=== PATIENT | female | born 1990 | race Caucasian/White ===

== ENCOUNTER 2017-02-25 17:10 | Outpatient (CLI) | payer OTHER ==
[~2017-02-25] VITALS: Ht 162.6 cm; Wt 87.1 kg
[2017-02-25 17:26] VITALS: BP 108/64; PULSE 65; RESP 18; Ht 162.6 cm; Wt 87.1 kg
[2017-02-25] MEDS ORDERED: PRENAT PO (17:26)
[2017-02-25] MEDS ORDERED: ALBU90AE INHALATION (17:26)
[2017-02-25] MEDS ORDERED: FLUN8.9H INH (17:26)
[2017-02-25] MEDS ORDERED: FER325 PO (17:26)
[2017-02-25] MEDS ORDERED: FOLI-49 PO (17:26)
--- NOTE | 2017-02-25 18:08 | RADRPT ---
PROCEDURE: US biophysical profile. CLINICAL INDICATION: Decreased motion. Asthma. TECHNIQUE: Multiple sonographic images of the uterus were obtained. The images were revi ewed on a PACS workstation. COMPARISON: No prior studies are available for comparison. FINDINGS: There is a single live intrauterine gestation. heart rate is 144 beats per minute. The position is cephalic. The placenta is fundal anterior grade 1 with no abruption or previa. The JOSE G is 10.8 cm. (Normal = 5-20 cm.) Breathing Movement: 2 Gross Body Movement: 2 Tone: 2 Qualitative Amniotic Fluid Volume: 2 TOTAL: 8 IMPRESSION: 1. The biophysical score is 8/8. RPTAT: QQ .Eb Ramirez MD, MD Date Time Electronically viewed and signed by .Eb Ramirez MD, on 02/25/2017 18:08 .R/
--- NOTE | 2017-02-25 18:27 | QN ---
Documentation Comment Antepartum Testing for asthma NST Category I Bpp 07/01 BARBARA TSE MD Feb 25, 2017 18:27
--- NOTE | 2017-02-25 18:29 | TRIAGE ---
OB Triage Datetime Report Generated by CPN: 02/25/2017 18:28 Datetime: 02/25/2017 18:23 Labor Evaluation Frequency: 0 Monitor Mode: External Pattern: Normal: <= 5 Contractions in 10 Minutes Resting Tone [place]: Relaxed Heart Rate FHR Baseline Rate: 130 Monitor Mode: External US Variability: Moderate 6-25 bpm Accelerations: 15X15 Decelerations: None Category: Category I Pain Assessment Pain Presence: None/Denies Datetime: 02/25/2017 17:22 Assessment Type: Triage Maternal Assessment Level of Consciousness: Fully Conscious DTR's/Clonus: DTRs 2+; No Clonus Headache: Denies Blurred Vision: No Respiratory Effort: Unlabored; Regular Rhythm; Equal Expansion Breath Sounds, Left: Clear and Equal Breath Sounds, Right: Clear and Equal Nausea/Vomiting: Denies RUQ Epigastric Pain: Denies Lower Extremities Edema: None Degree: None Upper Extremities Edema: None Degree: None Facial Edema: None Fall Risk Assessment History of Falling: (0) No Secondary Diagnosis: (0) No Ambulatory Aid: (0) Bedrest/Nurse Assist IV Therapy: (0) No Gait: (0) Normal/Bedrest/Immobile Mental Status: (0) Oriented to Own Ability Fall Score: 0 Fall Risk Score Definition: No Risk: No action required Datetime: 02/25/2017 17:17 EGA: 34.5 Datetime: 02/25/2017 17:16 Time of Arrival: 02/25/2017 17:10 Arrived By: Ambulatory Arrived From: Dr. Loo Chief Complaint: PT SENT FROM CLINIC FOR NST/JOSE G FOR ASTHMA Movement: Present Contractions: Denies/Absent Rupture of Membranes: Denies Vaginal Bleeding: None Vaginal Discharge: Denies Recent Sexual Intercouse: Denies Abdominal Trauma: Not Applicable Patient Complaints: None Provider Notified: CARMENCITA Initial Plan: NST/BPP Monitor Mode: External Monitor Mode: External US
== END 2017-02-25 18:35 | disposition home or self-care (01) ==
LOC: OBT 17:10 → L-D 17:15 → OBT 18:35
PROVIDERS: ATTEND Obstetrics & Gynecology
DX: O26.893 Other specified pregnancy related conditions, third trimester (principal); J45.909 Unspecified asthma, uncomplicated; Z3A.34 34 weeks gestation of pregnancy
CPT/HCPCS: 76818; Z7500; G0463

== ENCOUNTER 2017-02-28 17:29 | Outpatient (CLI) | payer OTHER ==
[~2017-02-28 17:29] MED LIST: ALBU90AE INHALATION; FER325 PO; FLUN8.9H INH; FOLI-49 PO; PRENAT PO
--- NOTE | 2017-02-28 18:22 | RADRPT ---
PROCEDURE: US biophysical profile. CLINICAL INDICATION: Decreased motion. Asthma. TECHNIQUE: Multiple sonographic images of the uterus were obtained. The images were revi ewed on a PACS workstation. COMPARISON: 02/25/2017. FINDINGS: There is a single live intrauterine gestation. heart rate is 129 beats per minute. The position is cephalic. The placenta is fundal anterior grade II with no abruption or previa. The JOSE G is 11.5 cm. (Normal = 5-20 cm.) Breathing Movement: 2 Gross Body Movement: 2 Tone: 2 Qualitative Amniotic Fluid Volume: 2 TOTAL: 8 IMPRESSION: 1. The biophysical score is 8/8. RPTAT: QQ .Eb Ramirez MD, MD Date Time Electronically viewed and signed by .Eb Ramirez MD, on 02/28/2017 18:22 .R/
--- NOTE | 2017-02-28 19:14 | TRIAGE ---
OB Triage Datetime Report Generated by CPN: 02/28/2017 19:14 Datetime: 02/28/2017 17:30 Assessment Type: Triage Maternal Assessment Level of Consciousness: Fully Conscious DTR's/Clonus: DTRs Absent Headache: Denies Blurred Vision: No Respiratory Effort: Unlabored; Regular Rhythm Breath Sounds, Left: Clear and Equal Breath Sounds, Right: Clear and Equal Nausea/Vomiting: Denies RUQ Epigastric Pain: Denies Lower Extremities Edema: None Degree: None Upper Extremities Edema: None Degree: None Facial Edema: None Fall Risk Assessment History of Falling: (0) No Secondary Diagnosis: (0) No Ambulatory Aid: (0) Bedrest/Nurse Assist IV Therapy: (0) No Gait: (0) Normal/Bedrest/Immobile Mental Status: (0) Oriented to Own Ability Fall Score: 0 Fall Risk Score Definition: No Risk: No action required Datetime: 02/28/2017 17:27 Time of Arrival: 02/28/2017 17:27 EGA: 35.1 Arrived By: Ambulatory Arrived From: Home Chief Complaint: PT PRESENTS TO TRIAGE FOR FOLLOW UP NST/BPP DUE TO ASHTHMA Movement: Present Contractions: Denies/Absent Rupture of Membranes: Denies Vaginal Bleeding: None Vaginal Discharge: Denies Recent Sexual Intercouse: Denies Abdominal Trauma: Not Applicable Patient Complaints: None Initial Plan: NST/BPP Datetime: 02/25/2017 17:22 Fall Score: 0 Fall Risk Score Definition: No Risk: No action required Datetime: 02/25/2017 17:18 Temperature Route: Oral Datetime: 02/25/2017 17:17 EGA: 34.5 Datetime: 02/25/2017 17:16 Time Provider Notified: 02/25/2017 18:23 Initial Plan: NST- REACTIVE /BPP-8, JOSE G-10.8
--- NOTE | 2017-04-03 19:00 | QN ---
Documentation Comment Diagnoses: 1. at 35 weeks 2. Asthma BRABARA TSE MD April 03, 2017 19:00
== END 2017-02-28 18:50 | disposition home or self-care (01) ==
LOC: L-D 17:29 → OBT 17:29
PROVIDERS: ATTEND Obstetrics & Gynecology
DX: O26.893 Other specified pregnancy related conditions, third trimester (principal); J45.909 Unspecified asthma, uncomplicated; Z3A.35 35 weeks gestation of pregnancy
CPT/HCPCS: 76818; Z7500; G0463

== ENCOUNTER 2017-03-04 17:31 | Outpatient (CLI) | payer OTHER ==
[~2017-03-04] VITALS: Ht 162.6 cm; Wt 86.5 kg
[2017-03-04 17:41] VITALS: Ht 162.6 cm; Wt 86.5 kg
[2017-03-04 17:42] VITALS: BP 118/67; PULSE 63
--- NOTE | 2017-03-04 18:15 | RADRPT ---
PROCEDURE: US OB biophysical profile. CLINICAL INDICATION: decreased movements, asthma TECHNIQUE: Multiple sonographic images of the pelvis were obtained. The images were reviewed on a PACS workstation. COMPARISON: 02/28/17 FINDINGS: There is a single viable intrauterine gestation. Cardiac activity is present with 146 beats per min [place]. There is a vertex presentation. The placenta is anterior fundal. There is no evidence of placental abruption. There is a normal amount of amniotic fluid with an JOSE G = 13.1 cm. Biophysical profile: movement 2/2 tone 2/2. breathing 2/2 JOSE G 2/2 Total 07/01 RPTAT: AA . IMPRESSION: Normal biophysical profile. . .Raymond Jeff MD, MD Date Time Electronically viewed and signed by .Raymond Jeff MD, MD on 03/04/2017 18:15 .S/
--- NOTE | 2017-03-04 19:52 | PN ---
Date/Time of Note Date/Time of Note DATE: 03/04/17 TIME: 19:48 OB Subjective Subjective Subjective 26y.o primigravida at 35w5d for biweekly APT for asthma no difficulty breathing OB Objective Objective Objective EFM REACTIVE BPP 8/ with JOSE G 13.1 VSS AFEBRILE OB Assessment/Plan Other Assessment: IUP 35w5d ASTHMA asymptomatic Other plan: discharge home and RTH in 3days for f/u APT ANDREW SANTIAGO MD Mar 04, 2017 19:52
== END 2017-03-04 19:20 | disposition home or self-care (01) ==
LOC: OBT 17:31 → L-D 17:32 → OBT 19:20
PROVIDERS: ATTEND Obstetrics & Gynecology
DX: O26.893 Other specified pregnancy related conditions, third trimester (principal); J45.909 Unspecified asthma, uncomplicated; Z3A.35 35 weeks gestation of pregnancy
CPT/HCPCS: 76818; Z7500; G0463

== ENCOUNTER 2017-03-07 18:32 | Outpatient (CLI) | payer OTHER ==
[~2017-03-07] VITALS: Ht 162.6 cm; Wt 87.1 kg
[2017-03-07 18:38] VITALS: Ht 162.6 cm; Wt 87.1 kg
[2017-03-07 18:45] VITALS: BP 115/54
--- NOTE | 2017-03-07 19:12 | RADRPT ---
PROCEDURE: US OB biophysical profile. CLINICAL INDICATION: decreased movements, asthma TECHNIQUE: Multiple sonographic images of the pelvis were obtained. The images were reviewed on a PACS workstation. COMPARISON: 03/04/17 FINDINGS: There is a single viable intrauterine gestation. Cardiac activity is present with 140 beats per min [place]. There is a vertex presentation. The placenta is anterior fundal. There is no evidence of placental abruption. There is a normal amount of amniotic fluid with an JOSE G = 12 cm. Biophysical profile: movement 2/2 tone 2/2. breathing 2/2 JOSE G 2/2 Total 07/01 RPTAT: AA . IMPRESSION: Normal biophysical profile. . .Raymond Jeff MD, MD Date Time Electronically viewed and signed by .Raymond Jeff MD, on 03/07/2017 19:12 .S/
--- NOTE | 2017-03-07 20:21 | PN ---
Date/Time of Note Date/Time of Note DATE: 03/07/17 TIME: 20:07 OB Subjective Subjective Subjective 26 yo P0 @ 36.1 wks, sent by her doctor for NST/BPP for asthma and decreased movement. feels baby moving now, no VB, no LOF, does not feel ctx OB Objective Objective Objective VS: 115/54, 73, 16, 98.0 Abdomen- gravid, n/t SVE- l/c/p FHT- Cat I [place]ail- irreg ctx Abdomen: WNL Cervical Dilatation: None Effacement: 0% Station: -3 Membranes: Intact Heart Rate: 130's Accelerations: Accelerations Present Decelerations: No Decelerations Varibility: Moderate Contractions on Admission: >10 Minutes Apart Intensity: Mild OB Assessment/Plan Other Assessment: 26 yo P0 @ 36.1 wks, sent for NST/BPP for decreased FM and asthma - BPP 8/8, JOSE G 12 -reassuring status Other plan: d/c home f/u for next scheduled NST/BPP FKK precautions; labor precautions STACIE RUBI MD Mar 07, 2017 20:20
--- NOTE | 2017-03-07 23:29 | TRIAGE ---
OB Triage Datetime Report Generated by CPN: 03/07/2017 23:28 Datetime: 03/07/2017 20:39 Stage of : OB Triage Labor Evaluation Frequency: 1.5-6 Monitor Mode: External Duration (sec)2399: 40-60 Quality: Mild Pattern: Normal: <= 5 Contractions in 10 Minutes Resting Tone [place]: Relaxed Heart Rate FHR Baseline Rate: 135 Monitor Mode: External US FHR Baseline Changes: No Baseline Change Variability: Moderate 6-25 bpm Accelerations: 15X15 Decelerations: None Category: Category I Datetime: 03/07/2017 20:31 Stage of : OB Triage Datetime: 03/07/2017 20:07 Stage of : OB Triage Datetime: 03/07/2017 20:02 Stage of : OB Triage Datetime: 03/07/2017 20:00 Stage of : OB Triage Labor Evaluation Frequency: 1.5-5 Monitor Mode: External Duration (sec)2399: 40-100 Quality: Mild Pattern: Normal: <= 5 Contractions in 10 Minutes Resting Tone [place]: Relaxed Heart Rate FHR Baseline Rate: 135 Monitor Mode: External US Variability: Moderate 6-25 bpm Accelerations: 15X15 Decelerations: None Category: Category I Vaginal Exam Dilatation (cms): 0.0 Effacement (%): 0 Station: -4 Exam By: GIANLUCA Bundy Membrane Status: Intact Vaginal Bleeding: None Cervix, Consistency: Firm Cervix, Position: Posterior Datetime: 03/07/2017 19:48 Stage of : OB Triage Datetime: 03/07/2017 18:47 Stage of : OB Triage Assessment Type: Triage Maternal Assessment Level of Consciousness: Fully Conscious DTR's/Clonus: DTRs 2+; No Clonus Headache: Denies Blurred Vision: No Respiratory Effort: Unlabored; Regular Rhythm; Equal Expansion Breath Sounds, Left: Clear and Equal Breath Sounds, Right: Clear and Equal Nausea/Vomiting: Denies RUQ Epigastric Pain: Denies Lower Extremities Edema: None Degree: None Upper Extremities Edema: None Degree: None Facial Edema: None Temperature Route: Oral Fall Risk Assessment History of Falling: (0) No Secondary Diagnosis: (0) No Ambulatory Aid: (0) Bedrest/Nurse Assist IV Therapy: (0) No Gait: (0) Normal/Bedrest/Immobile Mental Status: (0) Oriented to Own Ability Fall Score: 0 Fall Risk Score Definition: No Risk: No action required Monitor Mode: External Heart Rate FHR Baseline Rate: 135 Monitor Mode: External US Pain Assessment Pain Scale: 0 Pain Presence: None/Denies Pain Type: N/A Datetime: 03/07/2017 18:46 Time of Arrival: 03/07/2017 18:31 EGA: 36.1 Arrived By: Ambulatory Arrived From: Home Chief Complaint: F/UP NST BPP FOR ASTHMA Movement: Present Contractions: Denies/Absent Rupture of Membranes: Denies Vaginal Bleeding: None Vaginal Discharge: Denies Recent Sexual Intercouse: Denies Abdominal Trauma: Not Applicable Patient Complaints: None Time Provider Notified: 03/07/2017 20:02 Provider Notified: Initial Plan: NST BPP/JOSE G Datetime: 03/04/2017 19:06 Stage of : OB Triage Datetime: 03/04/2017 18:39 Labor Evaluation Frequency: 0 Monitor Mode: External Pattern: Normal: <= 5 Contractions in 10 Minutes Resting Tone [place]: Relaxed Heart Rate FHR Baseline Rate: 125 Monitor Mode: External US Variability: Moderate 6-25 bpm Accelerations: 10X10 Decelerations: None Category: Category I Pain Assessment Pain Scale: 0 Pain Presence: None/Denies Pain Type: N/A Pain Goal: 3 Pain Relief Measures: Comfort Measures Datetime: 03/04/2017 18:32 Stage of : Antepartum Datetime: 03/04/2017 18:16 Stage of : OB Triage Datetime: 03/04/2017 18:05 Time of Arrival: 03/04/2017 17:31 EGA: 35.5 Arrived By: Ambulatory Arrived From: Home Chief Complaint: BIWEEKLY NST_BPP FOR ASTMA Movement: Present Contractions: Denies/Absent Rupture of Membranes: Denies Vaginal Bleeding: None Vaginal Discharge: Denies Recent Sexual Intercouse: Denies Abdominal Trauma: Not Applicable Patient Complaints: None Time Provider Notified: 03/04/2017 18:32 Provider Notified: CARMENCITA Initial Plan: MONITOR, BPP Datetime: 03/04/2017 17:45 Stage of : OB Triage Assessment Type: Triage Maternal Assessment Level of Consciousness: Fully Conscious DTR's/Clonus: DTRs 2+; No Clonus Headache: Denies Blurred Vision: No Respiratory Effort: Unlabored; Regular Rhythm; Equal Expansion Breath Sounds, Left: Clear and Equal Breath Sounds, Right: Clear and Equal Nausea/Vomiting: Denies RUQ Epigastric Pain: Denies Lower Extremities Edema: None Degree: None Upper Extremities Edema: None Degree: None Facial Edema: None Temperature Route: Axillary Fall Risk Assessment History of Falling: (0) No Secondary Diagnosis: (0) No Ambulatory Aid: (0) Bedrest/Nurse Assist IV Therapy: (0) No Gait: (0) Normal/Bedrest/Immobile Mental Status: (0) Oriented to Own Ability Fall Score: 0 Fall Risk Score Definition: No Risk: No action required Labor Evaluation Frequency: 0 Monitor Mode: External Pattern: Normal: <= 5 Contractions in 10 Minutes Resting Tone [place]: Relaxed Heart Rate FHR Baseline Rate: 125 Monitor Mode: External US Variability: Moderate 6-25 bpm Accelerations: 15X15 Decelerations: None Category: Category I Pain Assessment Pain Scale: 0 Pain Presence: None/Denies Pain Type: N/A Pain Goal: 3 Pain Relief Measures: Comfort Measures Datetime: 02/28/2017 18:44 Labor Evaluation Frequency: 0 Pattern: Normal: <= 5 Contractions in 10 Minutes Resting Tone [place]: Relaxed Heart Rate FHR Baseline Rate: 130 Monitor Mode: External US FHR Baseline Changes: No Baseline Change Variability: Moderate 6-25 bpm Accelerations: 15X15 Decelerations: None Category: Category I Pain Assessment Pain Scale: 0 Pain Presence: None/Denies Pain Type: N/A Datetime: 02/28/2017 17:57 Labor Evaluation Frequency: 0 Pattern: Normal: <= 5 Contractions in 10 Minutes Resting Tone [place]: Relaxed Heart Rate FHR Baseline Rate: 130 Monitor Mode: External US FHR Baseline Changes: No Baseline Change Variability: Moderate 6-25 bpm Accelerations: 15X15 Decelerations: None Category: Category I Pain Assessment Pain Scale: 0 Pain Presence: None/Denies Pain Type: N/A Datetime: 02/28/2017 17:30 Fall Score: 0 Fall Risk Score Definition: No Risk: No action required Datetime: 02/28/2017 17:27 EGA: 35.1 Time Provider Notified: 02/28/2017 18:42 Provider Notified: DELSHAD Datetime: 02/25/2017 17:22 Fall Score: 0 Fall Risk Score Definition: No Risk: No action required Datetime: 02/25/2017 17:17 EGA: 34.5
== END 2017-03-07 20:55 | disposition home or self-care (01) ==
LOC: OBT 18:32 → L-D 18:36 → OBT 20:55
PROVIDERS: ATTEND Obstetrics & Gynecology
DX: O36.8130 Decreased fetal movements, third trimester, not applicable or unspecified (principal); Z3A.36 36 weeks gestation of pregnancy
CPT/HCPCS: 76818; Z7500; G0463

== ENCOUNTER 2017-03-11 10:34 | Outpatient (CLI) | payer OTHER ==
[~2017-03-11] VITALS: Ht 162.6 cm; Wt 86.0 kg
[2017-03-11 10:39] VITALS: BP 123/71; PULSE 93; RESP 18; Ht 162.6 cm; Wt 86.0 kg
--- NOTE | 2017-03-11 11:58 | RADRPT ---
PROCEDURE: US OB biophysical profile. CLINICAL INDICATION: decreased movements TECHNIQUE: Multiple sonographic images of the pelvis were obtained. The images were reviewed on a PACS workstation. COMPARISON: 03/07/2017 FINDINGS: There is a single viable intrauterine gestation. Cardiac activity is present with 125 beats per min [place]. There is a vertex presentation. The placenta is anterior. There is no evidence of placental abruption. There is a normal amount of amniotic fluid with an JOSE G = 10.1 cm. Biophysical profile: movement 2/2 tone 2/2. breathing 2/2 JOSE G 2/2 Total 07/01 RPTAT: AA . IMPRESSION: Normal biophysical profile. Normal JOSE G . .Raymond Jeff MD, MD Date Time Electronically viewed and signed by .Raymond Jeff MD, MD on 03/11/2017 11:58 .S/
--- NOTE | 2017-03-11 12:48 | QN ---
Documentation Comment Antepartum Testing for h/o asthma NST category I BPP 07/01 BARBARA TSE MD Mar 11, 2017 12:48
--- NOTE | 2017-03-11 12:58 | TRIAGE ---
OB Triage Datetime Report Generated by CPN: 03/11/2017 12:58 Datetime: 03/11/2017 12:06 Monitor Mode: External Resting Tone [place]: Relaxed Heart Rate FHR Baseline Rate: 130 Monitor Mode: External US FHR Baseline Changes: No Baseline Change Variability: Moderate 6-25 bpm Accelerations: 15X15 Decelerations: None Category: Category I Pain Assessment Pain Presence: None/Denies Datetime: 03/11/2017 11:06 Labor Evaluation Frequency: x1 contraction noted Monitor Mode: External Quality: Mild Pattern: Normal: <= 5 Contractions in 10 Minutes Resting Tone [place]: Relaxed Heart Rate FHR Baseline Rate: 140 Monitor Mode: External US FHR Baseline Changes: No Baseline Change Variability: Moderate 6-25 bpm Accelerations: 15X15 Decelerations: None Category: Category I Pain Assessment Pain Presence: None/Denies Datetime: 03/11/2017 10:40 Assessment Type: Triage Time of Arrival: 03/11/2017 10:25 EGA: 36.5 Arrived By: Ambulatory Arrived From: Home Chief Complaint: Repeat NST/BPP _ JOSE G Movement: Present Contractions: Denies/Absent Rupture of Membranes: Denies Vaginal Bleeding: None Vaginal Discharge: Denies Recent Sexual Intercouse: Denies Abdominal Trauma: Not Applicable Patient Complaints: None Time Provider Notified: 03/11/2017 12:44 Provider Notified: Delshad Initial Plan: NST, BPP _ JOSE G Maternal Assessment Level of Consciousness: Fully Conscious DTR's/Clonus: DTRs 2+; No Clonus Headache: Denies Blurred Vision: No Respiratory Effort: Unlabored; Regular Rhythm; Equal Expansion Breath Sounds, Left: Clear and Equal Breath Sounds, Right: Clear and Equal Nausea/Vomiting: Denies RUQ Epigastric Pain: Denies Lower Extremities Edema: None Degree: None Upper Extremities Edema: None Degree: None Facial Edema: None Fall Risk Assessment History of Falling: (0) No Secondary Diagnosis: (0) No Ambulatory Aid: (0) Bedrest/Nurse Assist IV Therapy: (0) No Gait: (0) Normal/Bedrest/Immobile Mental Status: (0) Oriented to Own Ability Fall Score: 0 Fall Risk Score Definition: No Risk: No action required Datetime: 03/11/2017 10:36 Pain Assessment Pain Presence: None/Denies Datetime: 03/11/2017 10:35 Stage of : OB Triage Datetime: 03/07/2017 20:00 Assessment Type: Triage Maternal Assessment Level of Consciousness: Fully Conscious DTR's/Clonus: DTRs 2+; No Clonus Headache: Denies Blurred Vision: No Respiratory Effort: Unlabored; Regular Rhythm; Equal Expansion Breath Sounds, Left: Clear and Equal Breath Sounds, Right: Clear and Equal Nausea/Vomiting: Denies RUQ Epigastric Pain: Denies Lower Extremities Edema: None Degree: None Upper Extremities Edema: None Degree: None Facial Edema: None Fall Risk Assessment History of Falling: (0) No Secondary Diagnosis: (0) No Ambulatory Aid: (0) Bedrest/Nurse Assist IV Therapy: (0) No Gait: (0) Normal/Bedrest/Immobile Mental Status: (0) Oriented to Own Ability Fall Score: 0 Fall Risk Score Definition: No Risk: No action required Datetime: 03/07/2017 18:47 Fall Score: 0 Fall Risk Score Definition: No Risk: No action required Datetime: 03/07/2017 18:46 EGA: 36.1 Datetime: 03/04/2017 18:05 EGA: 35.5 Datetime: 03/04/2017 17:45 Fall Score: 0 Fall Risk Score Definition: No Risk: No action required Datetime: 02/28/2017 17:30 Fall Score: 0 Fall Risk Score Definition: No Risk: No action required Datetime: 02/28/2017 17:27 EGA: 35.1 Datetime: 02/25/2017 17:22 Fall Score: 0 Fall Risk Score Definition: No Risk: No action required Datetime: 02/25/2017 17:17 EGA: 34.5
== END 2017-03-11 12:55 | disposition home or self-care (01) ==
LOC: OBT 10:34 → L-D 10:35 → OBT 12:55
PROVIDERS: ATTEND Obstetrics & Gynecology
DX: O26.893 Other specified pregnancy related conditions, third trimester (principal); O36.8130 Decreased fetal movements, third trimester, not applicable or unspecified; Z3A.36 36 weeks gestation of pregnancy
CPT/HCPCS: 76818; Z7500; G0463